=== PATIENT | male | born 1950 | race Caucasian/White ===

== ENCOUNTER 2020-06-01 12:34 | Observation (INO) ==
[2020-06-01 13:33] LABS: Hematocrit 49.3 % (42.0-52.0); Hemoglobin 15.8 gm/dL (13.5-18.0); Mean Cell Volume 93.4 fl (78-100); Mean Corpuscular Hemoglobin 29.9 pg (27-31); Mean Platelet Volume 8.7 fl (8-11.3); Neutrophil # 10.5 K/mm3 (1.3-6.0); Neutrophil % 83.5 % (42-75.0); Platelet Count 300 K/mm3 (150-450); Red Blood Count 5.28 M/mm3 (4.7-6.0); Red Cell Distribution Width 13.6 % (11.5-14.0); White Blood Count 12.6 K/mm3 (4.0-10.5)
[2020-06-01 13:45] LABS: Anion Gap 15.6 mmol/L (6.8-13.8); BUN/Creatinine Ratio 23.7 (9.0-21.6); Bilirubin, Total 0.7 mg/dL (0.0-1.1); Ca. Corrected For Albumin 8.9 mg/dL (8.4-10.2); Calcium * 8.4 mg/dL (7.9-10.9); Carbon Dioxide 25.4 mmol/L (24-32.6); Total Protein 6.8 gm/dL (6.2-8.2)
[2020-06-01] MEDS ORDERED: NORMAL SALINE 1,000 ML IV ONE (13:45)
--- NOTE | 2020-06-01 14:01 | ERNOTE ---
Trauma/Assault HPI - Narrative Date of Service: 06/01/20 - General Stated Complaint: fall Time Seen by Provider: 06/01/20 12:45 Source: patient Exam Limitations: no limitations - Immun/Allergies/Home Medications Immunizations: IMMUNIZATION HX Immunizations Up to Date Yes History of Influenza Vaccine No Hx Pneumococcal Vaccination No Allergies/Adverse Reactions: Allergies Penicillins Adverse Reaction (Mild, Verified 06/01/20 12:40) WHITE BUMPS ON ARMS adhesive tape Adverse Reaction (Verified 06/01/20 12:40) Home Medications: HOME MEDICATIONS Cyanocobalamin [Vitamin B-12] 1,000 mcg PO DAILY 04/26/14 [Last Taken 05/03/14] Folic Acid 0.4 mg PO DAILY 04/26/14 [Last Taken 05/03/14] Aspirin [Aspirin EC] 81 mg PO DAILY 06/01/20 [Last Taken Unknown] - History of Present Illness Narrative: 69-year-old male presents with 3 to 4 days of nausea, vomiting, diarrhea, and generalized weakness. He states he had a mechanical ground-level fall resulting in a head blow. He denies any vision or hearing changes. He states he only takes aspirin daily and vitamins. He denies other past medical history. He reports he smokes daily. Pain Location: Reports: lower extremity, other - Mild pain over the left ankle Severity: mild Loss of Consciousness: Reports: no loss of consciousness Review of Systems - Review of Systems Constitutional: Present: weakness EYE: Present: no symptoms reported ENT: Present: no symptoms reported Respiratory: Present: no symptoms reported Cardiology: Present: no symptoms reported Gastrointestinal/Abdominal: Present: nausea, vomiting, diarrhea. Absent: drinking less Genitourinary: Present: frequency Musculoskeletal: Present: joint swelling Skin: Present: no symptoms reported Neurological: Present: dizziness/light-headedness All Other Systems: All systems neg except as marked Medical History (Last Reviewed 06/01/20 @ 19:13 by Casper Yadav MD) No pertinent past medical history Surgical History: Surgical History (Last Reviewed 06/01/20 @ 19:13 by Casper Yadav MD) No pertinent past surgical history Social History: (Last Reviewed 06/01/20 @ 19:13 by Casper Yadav MD) Tobacco: Smoking Status: Current every day smoker Physical Exam - Physical Exam Narrative: Disheveled General Appearance: Present: alert Respiratory: Present: no respiratory distress, wheezing Cardiovascular/Chest: Present: tachycardia Gastrointestinal/Abdominal: Present: normal bowel sounds, nontender Extremity Exam: Present: other - Tenderness over the lateral malleolus of the left ankle Neurological Exam: Present: alert, normal mood/affect - Tinea cruris noted Progress - Results and Orders Patient's Lab Results:: I have reviewed the patient's lab results. - Vital Signs Patient's Vital Signs:: I have reviewed the patient's vital signs. Vital Signs: Vital Signs 06/01/20 12:35 06/01/20 12:40 Temperature 36.3 C 36.3 C Pulse Rate 112 H 112 H Respiratory Rate 20 20 Blood Pressure 128/81 128/81 O2 Sat by Pulse Oximetry 98 98 - Progress/Reassessment Chief Complaint: Fall Progress:: Improved Progress Note-Subjective: 06/01/20 19:15 69-year-old male presenting with a multitude of symptoms including nausea, vomiting, diarrhea, tachycardia, dizziness, weakness, recent falls. He has not had a primary care provider in many years. He was noted to be hyperglycemic and his work-up was consistent with a new onset of diabetes in setting of mild dehydration. Patient was placed in observation for further care. 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
[2020-06-01 15:20] LABS: Urine Appearance Slightly Cloudy (CLEAR); Urine Bilirubin 1 mg/dl (NEGATIVE); Urine Blood 25 /ul (NEGATIVE); Urine Color Yellow; Urine Ketone Negative (NEGATIVE)
[2020-06-01 15:21] LABS: Urine Nitrite Negative (NEGATIVE); Urine Protein 15 mg/dL (NEGATIVE); Urine Urobilinogen Normal (NORMAL); Urine pH 5.5 pH (5.0-7.0)
[2020-06-01 15:23] LABS: Urine Amorphous Sediment Few - 1+ (NONE-FEW); Urine Bacteria None Seen; Urine WBC 0-5 /hpf (0-5)
[2020-06-01 15:24] LABS: Urine Hyaline Cast 0-5 /LPF
[2020-06-01] MEDS ORDERED: INSULIN REGULAR, HUMAN 100 UNITS/ML VIAL SC ONE (15:57)
[2020-06-01] MEDS ORDERED: ACETAMINOPHEN 500 MG TABLET PO ONE (15:59)
--- NOTE | 2020-06-01 19:04 | HP ---
Chief Complaint - Chief Complaint Date of Service: 06/01/20 Time of Service: 19:04 Chief Complaint: incerased thirtst and urination History of Present Illness: 69-year-old male presented to the hospital with 3 to 4 days nausea, vomiting, diarrhea, and generalized weakness. Patient states he had increased thirst and urination over last few weeks as well. There was glucose in his urine as well as a random glucose of 363 and his BMP. He had a mildly elevated creatinine but not really an injury. He had a mildly elevated white count at 12.6 with a shift at 83.5%. His urine did not show any signs of infection. Covid test was negative. Patient was endorsing some ankle pain and an x-ray in the ER showed some minimal soft tissue swelling but otherwise no other acute bony pathology. Patient was admitted under observation to start working on his newly diagnosed diabetes as he was unaware of this prior to his stay. Patient only takes folic acid and aspirin regularly. Patient does endorse family history of type 2 diabetes and most of his siblings as well as 1 parent. Patient states his abdominal pain and that he came in with has improved significantly this evening and his appetite has returned. Patient states he is feeling better. He denies any diarrhea or vomiting at this time and has minimal abdominal discomfort with palpation. Medical History (Last Reviewed 06/01/20 @ 19:13 by Casper Yadav MD) No pertinent past medical history Surgical History: Surgical History (Last Reviewed 06/01/20 @ 19:13 by Casper Yadav MD) No pertinent past surgical history Social History: (Last Reviewed 06/01/20 @ 19:13 by Casper Yadav MD) Tobacco: Smoking Status: Current every day smoker Review Of Systems (GEN) - Review of Systems Generalized/Overall Review: Absent: Weakness, Chills, Fever EENTM: Present: No Symptoms Reported Respiratory: Present: No Symptoms Reported Cardiac: Present: No Symptoms Reported Abdominal: Present: Nausea - Resolved, Abdominal Pain - Minimal, Diarrhea - Resolved. Absent: Vomiting Genitourinary: Present: Urgency, Frequency. Absent: Burning Musculoskeletal: Present: Joint Pain - Left ankle pain Neurological: Present: No Symptoms Reported Skin: Present: No Symptoms Reported Endocrine: Present: No Symptoms Reported Immunizations: IMMUNIZATION HX Immunizations Up to Date Yes History of Influenza Vaccine No Hx Pneumococcal Vaccination No Allergies/Adverse Reactions: Allergies Allergy/AdvReac Type Severity Reaction Status Date / Time Penicillins AdvReac Mild WHITE Verified 06/01/20 12:40 BUMPS ON ARMS adhesive tape AdvReac Verified 06/01/20 12:40 Home Medications: HOME MEDICATIONS Cyanocobalamin [Vitamin B-12] 1,000 mcg PO DAILY 04/26/14 [Last Taken 05/03/14] Folic Acid 0.4 mg PO DAILY 04/26/14 [Last Taken 05/03/14] Aspirin [Aspirin EC] 81 mg PO DAILY 06/01/20 [Last Taken Unknown] Exam - Exam Vital Signs: Vital Signs - Last Taken Temp 36.6 C 06/01/20 18:34 Pulse 107 H 06/01/20 18:34 Resp 18 06/01/20 18:34 BP 135/77 06/01/20 18:34 Pulse Ox 97 06/01/20 18:34 Constitutional: Present: Alert, Oriented x3, Cooperative, No distress, Obese ENT Exam: Present: hearing grossly normal Eye Exam: bilateral eye: normal inspection, EOMI Neck: Present: non-tender, supple Back Exam: Absent: no CVA tenderness, no vertebral tenderness Respiratory: Present: lungs clear, normal breath sounds Cardiovascular/Chest: Present: regular rate, rhythm, no murmur Peripheral Pulses: dorsalis-pedis (R): 2+, dorsalis-pedis (L): 2+ Abdomen: Present: soft, nontender - Nontender, minimal discomfort with palpation epigastric region, nondistended Extremity: Present: leg pain - Over left lateral malleolus. Absent: lower extremity edema Skin Exam: Present: normal color, warm/dry Appearance: Present: appropriate appearance, appropriate insight, neat Eye contact: Present: cooperative, good eye contact Thoughts: Present: normal thought pattern, normal mood /affect Diagnostic Studies: Abnormal Lab Results 06/01/20 06/01/20 06/01/20 Range/Units 13:28 13:28 15:09 WBC 12.6 H (4.0-10.5) K/mm3 Immature Gran % (Auto) 0.60 H (0.001-0.429) % Immature Gran # (Auto) 0.07 H (0.000-0.0310) K/mm3 Neutrophils % 83.5 H (42-75.0) % Lymphocytes % 7.4 L (20-51) % Neutrophils # 10.5 H (1.3-6.0) K/mm3 Lymphocytes # 0.94 L (1.5-3.5) k/mm3 Anion Gap 15.6 H (6.8-13.8) mmol/L BUN 37 H (6-23) mg/dL Creatinine 1.56 H (0.4-1.4) mg/dL Est GFR (Non-Af Amer) 47 L D (60-130) mL/min BUN/Creatinine Ratio 23.7 H (9.0-21.6) Random Glucose 363 H (70-110) mg/dL Albumin 3.0 L (3.4-5.0) gm/dl Urine Protein 15 H (NEGATIVE) mg/dL Urine Glucose (UA) >=1000 H (NEGATIVE) mg/dL Urine Blood 25 H (NEGATIVE) /ul Urine Bilirubin 1 H (NEGATIVE) mg/dl Urine RBC 5-10 H (0-5) /hpf Hyaline Casts 0-5 H (NONE) /LPF Laboratory Results WBC 12.6 K/mm3 (4.0-10.5) H 06/01/20 13:28 RBC 5.28 M/mm3 (4.7-6.0) 06/01/20 13:28 Hgb 15.8 gm/dL (13.5-18.0) 06/01/20 13:28 Hct 49.3 % (42.0-52.0) 06/01/20 13:28 MCV 93.4 fl (78-100) 06/01/20 13:28 MCH 29.9 pg (27-31) 06/01/20 13:28 MCHC 32.0 g/dl (32-36) 06/01/20 13:28 RDW 13.6 % (11.5-14.0) 06/01/20 13:28 Plt Count 300 K/mm3 (150-450) 06/01/20 13:28 MPV 8.7 fl (8-11.3) 06/01/20 13:28 Immature Gran % (Auto) 0.60 % (0.001-0.429) H 06/01/20 13:28 Immature Gran # (Auto) 0.07 K/mm3 (0.000-0.0310) H 06/01/20 13:28 Neutrophils % 83.5 % (42-75.0) H 06/01/20 13:28 Lymphocytes % 7.4 % (20-51) L 06/01/20 13:28 Monocytes % 7.1 % (0.0-9) 06/01/20 13:28 Eosinophils % 0.8 % (0.0-3.0) 06/01/20 13: Basophils % 0.6 % (0.0-1.0) 06/01/20 13:28 Nucleated RBC % 0.0 k/mm3 (0-1) 06/01/20 13:28 Neutrophils # 10.5 K/mm3 (1.3-6.0) H 06/01/20 13:28 Lymphocytes # 0.94 k/mm3 (1.5-3.5) L 06/01/20 13: Monocytes # 0.9 k/mm3 (0.0-1.0) 06/01/20 13: Eosinophils # 0.1 k/mm3 (0.0-0.7) 06/01/20 13:28 Absolute Basophils 0.1 k/mm3 (0.0-0.1) 06/01/20 13:28 Sodium 137 mmol/L (132-142) 06/01/20 13:28 Plasma Sodium 141 mmol/L (130-142) 06/01/20 13:28 Potassium 4.0 mmol/L (3.4-4.6) 06/01/20 13: Chloride 100 mmol/L (97-106) 06/01/20 13:28 Carbon Dioxide 25.4 mmol/L (24-32.6) 06/01/20 13:28 Anion Gap 15.6 mmol/L (6.8-13.8) H 06/01/20 13:28 BUN 37 mg/dL (6-23) H 06/01/20 13:28 Creatinine 1.56 mg/dL (0.4-1.4) H 06/01/20 13:28 Est GFR (Non-Af Amer) 47 mL/min (60-130) L D 06/01/20 13:28 BUN/Creatinine Ratio 23.7 (9.0-21.6) H 06/01/20 13:28 Random Glucose 363 mg/dL (70-110) H 06/01/20 13: Calcium 8.4 mg/dL (7.9-10.9) 06/01/20 13: Calcium Adj for Albumin 8.9 mg/dL (8.4-10.2) 06/01/20 13: Total Bilirubin 0.7 mg/dL (0.0-1.1) 06/01/20 13: AST 39 U/L (0-48) 06/01/20 13: ALT 64 U/L (19-67) 06/01/20 13: Alkaline Phosphatase 79 U/L (50-170) 06/01/20 13: Total Protein 6.8 gm/dL (6.2-8.2) 06/01/20 13: Albumin 3.0 gm/dl (3.4-5.0) L 06/01/20 13: Urine Color Yellow 06/01/20 15:09 Urine Appearance Slightly cloudy (CLEAR) 06/01/20 15:09 Urine pH 5.5 pH (5.0-7.0) 06/01/20 15:09 Ur Specific [place] 1.030 SP.GR. (1.005-1.030) 06/01/20 15:09 Urine Protein 15 mg/dL (NEGATIVE) H 06/01/20 15:09 Urine Glucose (UA) >=1000 mg/dL (NEGATIVE) H 06/01/20 15:09 Urine Ketones Negative mg/dL (NEGATIVE) 06/01/20 15:09 Urine Blood 25 /ul (NEGATIVE) H 06/01/20 15:09 Urine Nitrate Negative (NEGATIVE) 06/01/20 15:09 Urine Bilirubin 1 mg/dl (NEGATIVE) H 06/01/20 15:09 Urine Urobilinogen Normal EU/dl (NORMAL) 06/01/20 15:09 Ur Leukocyte Esterase Negative /ul (NEGATIVE) 06/01/20 15:09 Urine RBC 5-10 /hpf (0-5) H 06/01/20 15:09 Urine WBC 0-5 /hpf (0-5) 06/01/20 15:09 Ur Epithelial Cells 0-5 /hpf (0-5) 06/01/20 15:09 Amorphous Sediment Few - 1+ (NONE-FEW) 06/01/20 15:09 Urine Bacteria None seen (NONE) 06/01/20 15:09 Hyaline Casts 0-5 /LPF (NONE) H 06/01/20 15:09 Urine Culture Comments No culture indicated 06/01/20 15:09 Serum Ketones Negative (NEGATIVE) 06/01/20 13:28 SARS-CoV-2 (PCR) Not detected (NotDetected) 06/01/20 14:02 Assessment/Plan - Narrative Narrative: Patient admitted due to elevated blood sugars, will check an A1c today. Patient's kidney function is appropriate though his creatinine is mildly elevated from his baseline of 1.2. Fluids will be given during his stay here. Discussed diabetes in detail as far as diet and exercise. Patient was started on a mild sliding scale while here. Depending on his A1c would determine whether he goes home with just oral medicines or if he needs to go home with some insulin. If he goes home on insulin I will be a once a day long-acting insulin with follow-up with his PCP to continue training and management of this disease. Patient's abdominal pain is mostly resolved and he feels much better. His appetite is back. He is tolerating p.o. intake well. Consistent carbohydrate diet ordered for this evening and tomorrow morning. Very thin goes well likely discharge tomorrow. Vital signs are stable though he does have a mildly elevated heart rate which I think will improve with fluids. Nurse to call with questions or concerns. - Assessment/Plan (1) New onset type 2 diabetes mellitus Problem: Acute (2) Nausea and vomiting Problem: Acute (3) Ankle pain Problem: Acute
[2020-06-01] MEDS: INSULIN LISPRO 100 UNITS/ML VIAL SC SCH (20:42)
[2020-06-02] MEDS: INSULIN LISPRO 100 UNITS/ML VIAL SC SCH ×2 (07:02→11:53)
[2020-06-02 07:03] LABS: Anion Gap 14.2 mmol/L (6.8-13.8); BUN/Creatinine Ratio 28.7 (9.0-21.6); Calcium * 8.4 mg/dL (7.9-10.9); Carbon Dioxide 24.4 mmol/L (24-32.6); Estimated Creat Clear 65.5; Potassium 3.6 mmol/L (3.4-4.6)
[2020-06-02 07:06] LABS: Hemoglobin A1C 11.3 % (3.80-5.60)
[2020-06-02] MEDS ORDERED: FOLIC ACID 0.4 MG TABLET PO SCH (09:00)
[2020-06-02] MEDS ORDERED: ASPIRIN 81 MG TABLET.DR PO SCH (09:00)
[2020-06-02] MEDS ORDERED: metFORMIN HCL 500 MG TABLET PO SCH (09:00)
--- NOTE | 2020-06-02 14:12 | DS ---
(1) New onset type 2 diabetes mellitus Problem: Acute (2) Nausea and vomiting Problem: Acute (3) Ankle pain Problem: Acute Date of Discharge:: 06/02/20 Hospital Course: 69-year-old male with no pertinent past medical history was admitted to the hospital due to new onset diabetes. Patient prior to coming here was not really on any medications other than folic acid. In the ER he was found have a sugar of 368 as well as sugar in his urine. A1c was ordered which came back at 11.3. Patient was started on Metformin and sliding scale insulin while here. Patient will be discharged home with Metformin as well as a long-acting insulin at 10 units/day. Patient will be instructed to follow-up with his PCP in the next week to continue to work on proper diabetic management and further treatment of this disease. Patient was instructed by his nurse today prior to discharge on how to administer insulin and was given the insulin to administer to himself at lunch. He did fine with this. Patient's girlfriend has also works in healthcare and will help him with administration of the insulin. We will not start him on a short acting at this time as he needs further training and better understanding of this process. This was talked again in detail with patient today before being discharged. Patient did not get great control of his blood sugars while here with his last one being 239. But he was in the mid to low 200s upon discharge and was no longer having increased thirst or urination like he had when he came in. He will be discharged home on Lantus 10 units at night, Metformin 500 mg twice daily, and the testing supplies will also be sent to his pharmacy. Patient to follow with Dr. Torres this week. Patient can also see me if he needs to prior to getting into see Dr. Claros if he is unavailable. Patient was in agreement the treatment plan and stated his understanding to this and will follow up as directed. His vital signs here were stable and he was afebrile. Procedures Performed: none Results and Findings: Lab Pending Results 06/01/20 13:28: WBC 12.6 H, RBC 5.28, Hgb 15.8, Hct 49.3, MCV 93.4, MCH 29.9, MCHC 32.0, RDW 13.6, Plt Count 300, MPV 8.7, Immature Gran % (Auto) 0.60 H, Immature Gran # (Auto) 0.07 H, Neutrophils % 83.5 H, Lymphocytes % 7.4 L, Monocytes % 7.1, Eosinophils % 0.8, Basophils % 0.6, Nucleated RBC % 0.0, Neutrophils # 10.5 H, Lymphocytes # 0.94 L, Monocytes # 0.9, Eosinophils # 0.1, Absolute Basophils 0.1 06/01/20 13:28: Sodium 137, Plasma Sodium 141, Potassium 4.0, Chloride 100, Carbon Dioxide 25.4, Anion Gap 15.6 H, BUN 37 H, Creatinine 1.56 H, Est GFR (Non-Af Amer) 47 L D, BUN/Creatinine Ratio 23.7 H, Random Glucose 363 H, Calcium 8.4, Calcium Adj for Albumin 8.9, Total Bilirubin 0.7, AST 39, ALT 64, Alkaline Phosphatase 79, Total Protein 6.8, Albumin 3.0 L 06/01/20 13:28: Serum Ketones Negative 06/01/20 14:02: SARS-CoV-2 (PCR) Not detected 06/01/20 15:09: Urine Color Yellow, Urine Appearance Slightly cloudy, Urine pH 5.5, Ur Specific [employer] 1.030, Urine Protein 15 H, Urine Glucose (UA) >=1000 H, Urine Ketones Negative, Urine Blood 25 H, Urine Nitrate Negative, Urine Bilirubin 1 H, Urine Urobilinogen Normal, Ur Leukocyte Esterase Negative, Urine RBC 5-10 H, Urine WBC 0-5, Ur Epithelial Cells 0-5, Amorphous Sediment Few - 1+, Urine Bacteria None seen, Hyaline Casts 0-5 H, Urine Culture Comments No culture indicated 06/02/20 06:17: Sodium 137, Plasma Sodium 140, Potassium 3.6, Chloride 102, Carbon Dioxide 24.4, Anion Gap 14.2 H, BUN 37 H, Creatinine 1.29, Est GFR (Non- Af Amer) 59 L D, BUN/Creatinine Ratio 28.7 H, Random Glucose 260 H, Calcium 8.4 06/02/20 06:17: Mean Blood Glucose 278, Hemoglobin A1c 11.3 H Discharge Location: Home Disposition: Home self-care Condition: Fair Discharge Activity: Activity as tolerated Discharge Diet: Consistent carbs Referrals: Andrés Torres DO [Primary Care Provider] - One Week Problem Oriented Discharge Instructions to Patient/Family: Diabetes Mellitus and Foot Care, Insulin Injection Instructions, Using Insulin Pens, Adult, Diabetes Basics, Type 2 Diabetes Mellitus, Self Care, Adult, [id number], Carbohydrate Counting for Diabetes Mellitus, Adult, Type 2 Diabetes Mellitus, Diagnosis, Adult, [id number], Blood Glucose Monitoring, Adult Additional Patient Instructions (free text): [facility] will call you on Wednesday with follow up appointment. Prescriptions (Any new or edited meds): Blood-Glucose Meter [Accu-Chek Guide Me Glucose Mtr] 1 ea MC BID #1 ea Transmission Status: Pending to [facility] #[id number] Lancets [Fingerstix] 1 MC BID #60 ea Transmission Status: Pending to [facility] #[id number] metFORMIN HCL [Glucophage] 500 mg PO BIDWM #60 tab Transmission Status: Pending to [facility] #[id number] Insulin Glargine,Hum.rec.anlog [Lantus Solostar] 10 unit SQ HS #1 insuln.pen Transmission Status: Pending to [facility] #[id number] Blood Sugar Diagnostic [Test Strips] 1 MC BID #60 strip Transmission Status: Pending to [facility] #[id number] Complete Home Medications List: Complete Home Medication List: Cyanocobalamin [Vitamin B-12] 1,000 mcg PO DAILY 04/26/14 Folic Acid 0.4 mg PO DAILY 04/26/14 Aspirin [Aspirin EC] 81 mg PO DAILY 06/01/20 Blood Sugar Diagnostic [Test Strips] 1 ea MC BID #60 strip 06/02/20 Blood-Glucose Meter [Accu-Chek Guide Me Glucose Mtr] 1 ea MC BID #1 ea 06/02/20 Insulin Glargine,Hum.rec.anlog [Lantus Solostar] 10 unit SQ HS #1 insuln.pen 06/02/20 Lancets [Fingerstix] 1 ea MC BID #60 ea 06/02/20 metFORMIN HCL [Glucophage] 500 mg PO BIDWM #60 tab 06/02/20 Forms: Patient Portal Registration
[2020-06-02 15:36] VITALS: BP 120/55
== END 2020-06-02 15:45 | disposition home or self-care (01) ==
LOC: MS 12:34 → ER 12:34 → MS 16:55
PROVIDERS: ADMIT Family Medicine; ATTEND Family Medicine
DX: M25.572 Pain in left ankle and joints of left foot; R53.1 Weakness; E86.0 Dehydration; R11.2 Nausea with vomiting, unspecified; E11.9 Type 2 diabetes mellitus without complications